=== PATIENT | male | born 1975 | race Caucasian/White ===

== ENCOUNTER 2016-07-30 22:08 | Emergency (ER) | payer OTHER ==
--- NOTE | 2016-07-31 00:35 | EDM.PDOC ---
ED HPI GENERAL MEDICAL PROBLEM - General Chief Complaint: General Stated Complaint: ACHY,WEAK,JOINT PAIN, [id number] Time Seen by Provider: 07/30/16 23:40 Source of Information: Reports: Patient History Limitations: Reports: No Limitations - History of Present Illness INITIAL COMMENTS - FREE TEXT/NARRATIVE: C/O severe joint pain and fatigue over past 2 days Sweating with activity. Pain generalized joints , migrates Location: Reports: Generalized Quality: Reports: Ache, Burning, Throbbing Severity: Moderate Improves with: Reports: Rest Associated Symptoms: Reports: Diaphoresis, Headaches, Loss of Appetite, Malaise. Denies: Rash Generalized Pain Score (Numeric/FACES): 4 - Related Data Allergies Allergy/AdvReac Type Severity Reaction Status Date / Time No Known Allergies Allergy Verified 07/30/16 23:43 Home Meds: Home Meds Hydrochlorothiazide 12.5 mg PO DAILY 07/30/16 [History] Metoprolol Succinate [Toprol XL] 100 mg PO DAILY 07/30/16 [History] Milk Thistle 150 mg PO BID 07/30/16 [History] Pioglitazone [Actos] 15 mg PO DAILY 07/30/16 [History] Potassium Chloride 10 meq PO DAILY 07/30/16 [History] metFORMIN [Glucophage XR] 1,000 mg PO BIDMEALS 07/30/16 [History] Past Medical History Cardiovascular History: Reports: Hypertension Other Gastrointestinal History: class 3 liver disease Endocrine/Metabolic History: Reports: Diabetes, Type II Social & Family History - Tobacco Use Smoking Status *Q: Never Smoker Second Hand Smoke Exposure: No - Recreational Drug Use Recreational Drug Use: No ED ROS GENERAL - Review of Systems Review Of Systems: See Below Constitutional: Reports: Malaise, Weakness, Diaphoresis HEENT: Reports: No Symptoms Respiratory: Reports: No Symptoms Cardiovascular: Reports: No Symptoms GI/Abdominal: Reports: Decreased Appetite, Nausea (slight, tolerating fluids, no emesis) : Reports: No Symptoms Musculoskeletal: Reports: Joint Pain. Denies: Joint Swelling Skin: Reports: No Symptoms. Denies: Rash Neurological: Reports: Headache ED EXAM, GENERAL - Physical Exam Exam: See Below Exam Limited By: No Limitations General Appearance: Alert, Mild Distress Eye Exam: Bilateral Eye: EOMI, PERRL Ears: Normal External Exam, Normal TMs Nose: Normal Inspection Throat/Mouth: Normal Inspection Head: Atraumatic, Normocephalic Neck: Normal Inspection, Full Range of Motion, Tender Lateral. No: Lymphadenopathy (L), Lymphadenopathy (R), Tender Midline Respiratory/Chest: No Respiratory Distress, Lungs Clear, Normal Breath Sounds Cardiovascular: Normal Peripheral Pulses, Regular Rate, Rhythm GI/Abdominal: Normal Bowel Sounds, Soft Back Exam: Full Range of Motion Extremities: Normal Inspection, Normal Range of Motion Neurological: Alert, Oriented, Normal Cognition Psychiatric: Normal Affect, Normal Mood Skin Exam: Warm, Dry, Intact, Normal Color, No Rash Course - Vital Signs Last Recorded V/S: Last Vital Signs Temp 97.3 F 07/31/16 05:00 Pulse 80 07/30/16 23:39 Resp 14 07/31/16 05:00 BP 153/85 H 07/31/16 05:00 Pulse Ox 96 07/31/16 05:00 - Orders/Labs/Meds Orders: Active Orders 24 hr Category Date Time Status Glucose [Blood Glucose Check, Bedside] [RC] ONETIME Care 07/31/16 00:04 Active CULTURE BLOOD [BC] Stat Lab 07/31/16 00:28 Received CULTURE BLOOD [BC] Stat Lab 07/31/16 00:30 Received LYME/B.BURGDORFERI IGG/IGM [REF] Stat Lab 07/31/16 00:28 Received NS + KCl 20mEq/L [Normal Saline with 20 mEq KCl] 1,000 Med 07/31/16 01:00 Active ml IV ASDIRECTED Blood Culture x2 Reflex Set [OM.PC] Stat Oth 07/31/16 00:01 Ordered Medication Orders Potassium Chloride/Sodium Chloride (Normal Saline With 20 Meq Kcl) 1,000 mls @ 200 mls/hr IV ASDIRECTED FREDY Last Infusion: 07/31/16 02:03 Dose: 500 mls/hr Admin: 07/31/16 01:19 Dose: 200 mls/hr Labs: Laboratory Tests 07/31/16 07/31/16 07/31/16 Range/Units 00:04 00:10 00:10 WBC 4.6 L (5.0-10.0) 10^3/uL RBC 5.40 (4.6-6.2) 10^6/uL Hgb 15.5 (14.0-18.0) g/dL Hct 44.0 (40.0-54.0) % MCV 81.5 (80-100) fL MCH 28.7 (27.0-34.0) pg MCHC 35.2 H (33.0-35.0) g/dL Plt Count 114 L (150-450) 10^3/uL Neut % (Auto) 71.4 (42.2-75.2) % Lymph % (Auto) 15.1 L (20.5-50.1) % [place] % (Auto) 13.1 H (2-8) % Eos % (Auto) 0.0 L (1.0-3.0) % Baso % (Auto) 0.4 (0.0-1.0) % Sodium 136 (135-145) mmol/L Potassium 2.9 L (3.6-5.0) mmol/L Chloride 99 L (101-111) mmol/L Carbon Dioxide 25.0 (21.0-31.0) mmol/L Anion Gap 14.9 BUN 15 (7-18) mg/dL Creatinine 1.1 (0.6-1.3) mg/dL Est Cr Clr Drug Dosing 98.96 mL/min Estimated GFR (MDRD) > 60 BUN/Creatinine Ratio 13.63 Glucose 128 H (74-105) mg/dL POC Glucose (70-105) mg/dl Lactic Acid (0.5-2.2) mmol/L Calcium 8.9 (8.4-10.2) mg/dl Total Bilirubin 2.2 H (0.2-1.0) mg/dL AST 46 H (10-42) IU/L ALT 47 (10-60) IU/L Alkaline Phosphatase 59 (42-121) IU/L Ammonia (11-35) umol/L C-Reactive Protein (0.0-1.3) mg/dL Total Protein 7.7 (6.7-8.2) g/dl Albumin 4.6 (3.2-5.5) g/dl Globulin 3.1 Albumin/Globulin Ratio 1.48 Amylase (28-100) U/L Lipase (22-51) U/L Urine Color Yellow (YELLOW) Urine Appearance Clear (CLEAR) Urine pH 7.0 (5.0-9.0) Ur Specific [facility] 1.010 (1.005-1.030) Urine Protein Negative (NEGATIVE) Urine Glucose (UA) Negative (NEGATIVE) Urine Ketones Negative (NEGATIVE) Urine Occult Blood Negative (NEGATIVE) Urine Nitrite Negative (NEGATIVE) Urine Bilirubin Negative (NEGATIVE) Urine Urobilinogen 0.2 (0.2-1.0) mg/dL Ur Leukocyte Esterase Negative (NEGATIVE) Urine RBC 0-5 /HPF Urine WBC 0-5 (0-5/HPF) /HPF Ur Epithelial Cells Occasional /HPF Urine Bacteria Occasional (0-FEW/HPF) /HPF Ketones Negative Monoscreen 07/31/16 07/31/16 07/31/16 Range/Units 00:10 00:12 00:28 WBC (5.0-10.0) 10^3/uL RBC (4.6-6.2) 10^6/uL Hgb (14.0-18.0) g/dL Hct (40.0-54.0) % MCV (80-100) fL MCH (27.0-34.0) pg MCHC (33.0-35.0) g/dL Plt Count (150-450) 10^3/uL Neut % (Auto) (42.2-75.2) % Lymph % (Auto) (20.5-50.1) % [place] % (Auto) (2-8) % Eos % (Auto) (1.0-3.0) % Baso % (Auto) (0.0-1.0) % Sodium (135-145) mmol/L Potassium (3.6-5.0) mmol/L Chloride (101-111) mmol/L Carbon Dioxide (21.0-31.0) mmol/L Anion Gap BUN (7-18) mg/dL Creatinine (0.6-1.3) mg/dL Est Cr Clr Drug Dosing mL/min Estimated GFR (MDRD) BUN/Creatinine Ratio Glucose (74-105) mg/dL POC Glucose 129 H (70-105) mg/dl Lactic Acid (0.5-2.2) mmol/L Calcium (8.4-10.2) mg/dl Total Bilirubin (0.2-1.0) mg/dL AST (10-42) IU/L ALT (10-60) IU/L Alkaline Phosphatase (42-121) IU/L Ammonia 36 H (11-35) umol/L C-Reactive Protein (0.0-1.3) mg/dL Total Protein (6.7-8.2) g/dl Albumin (3.2-5.5) g/dl Globulin Albumin/Globulin Ratio Amylase 67 (28-100) U/L Lipase 32 (22-51) U/L Urine Color (YELLOW) Urine Appearance (CLEAR) Urine pH (5.0-9.0) Ur Specific [facility] (1.005-1.030) Urine Protein (NEGATIVE) Urine Glucose (UA) (NEGATIVE) Urine Ketones (NEGATIVE) Urine Occult Blood (NEGATIVE) Urine Nitrite (NEGATIVE) Urine Bilirubin (NEGATIVE) Urine Urobilinogen (0.2-1.0) mg/dL Ur Leukocyte Esterase (NEGATIVE) Urine RBC /HPF Urine WBC (0-5/HPF) /HPF Ur Epithelial Cells /HPF Urine Bacteria (0-FEW/HPF) /HPF Ketones Monoscreen Negative 07/31/16 07/31/16 07/31/16 Range/Units 00:28 04:00 04:00 WBC (5.0-10.0) 10^3/uL RBC (4.6-6.2) 10^6/uL Hgb (14.0-18.0) g/dL Hct (40.0-54.0) % MCV (80-100) fL MCH (27.0-34.0) pg MCHC (33.0-35.0) g/dL Plt Count (150-450) 10^3/uL Neut % (Auto) (42.2-75.2) % Lymph % (Auto) (20.5-50.1) % [place] % (Auto) (2-8) % Eos % (Auto) (1.0-3.0) % Baso % (Auto) (0.0-1.0) % Sodium (135-145) mmol/L Potassium 3.2 L (3.6-5.0) mmol/L Chloride (101-111) mmol/L Carbon Dioxide (21.0-31.0) mmol/L Anion Gap BUN (7-18) mg/dL Creatinine (0.6-1.3) mg/dL Est Cr Clr Drug Dosing mL/min Estimated GFR (MDRD) BUN/Creatinine Ratio Glucose (74-105) mg/dL POC Glucose (70-105) mg/dl Lactic Acid 1.2 (0.5-2.2) mmol/L Calcium (8.4-10.2) mg/dl Total Bilirubin (0.2-1.0) mg/dL AST (10-42) IU/L ALT (10-60) IU/L Alkaline Phosphatase (42-121) IU/L Ammonia (11-35) umol/L C-Reactive Protein 3.3 H (0.0-1.3) mg/dL Total Protein (6.7-8.2) g/dl Albumin (3.2-5.5) g/dl Globulin Albumin/Globulin Ratio Amylase (28-100) U/L Lipase (22-51) U/L Urine Color (YELLOW) Urine Appearance (CLEAR) Urine pH (5.0-9.0) Ur Specific [facility] (1.005-1.030) Urine Protein (NEGATIVE) Urine Glucose (UA) (NEGATIVE) Urine Ketones (NEGATIVE) Urine Occult Blood (NEGATIVE) Urine Nitrite (NEGATIVE) Urine Bilirubin (NEGATIVE) Urine Urobilinogen (0.2-1.0) mg/dL Ur Leukocyte Esterase (NEGATIVE) Urine RBC /HPF Urine WBC (0-5/HPF) /HPF Ur Epithelial Cells /HPF Urine Bacteria (0-FEW/HPF) /HPF Ketones Monoscreen Meds: Medications Generic Name Dose Route Start Last Admin Trade Name Freq PRN Reason Stop Dose Admin Potassium Chloride/Sodium Chloride 1,000 mls @ 200 mls/hr 07/31/16 01:00 02:03 Normal Saline With 20 Meq Kcl IV 500 mls/hr ASDIRECTED FREDY Infusion Discontinued Medications Generic Name Dose Route Start Last Admin Trade Name Kaitlynn PRN Reason Stop Dose Admin Doxycycline Hyclate 100 mg 07/31/16 01:15 07/31/16 01:26 Vibramycin PO 07/31/16 01:16 100 mg ONETIME ONE Administration Doxycycline Hyclate 100 mg/ 100 mls @ 100 mls/hr 07/31/16 00:59 Sodium Chloride IV 07/31/16 01:58 ONETIME ONE Ibuprofen 600 mg 07/31/16 02:39 07/31/16 03:07 Motrin PO 07/31/16 02:40 600 mg ONETIME ONE Administration Ondansetron HCl 4 mg 07/31/16 00:59 07/31/16 01:16 Zofran IV 07/31/16 01:00 4 mg ONETIME ONE Administration Potassium Chloride 10 meq 07/31/16 00:58 07/31/16 01:21 Klor-Con 10 PO 07/31/16 00:59 10 meq ONETIME ONE Administration - Re-Assessments/Exams Free Text/Narrative Re-Assessment/Exam: 07/31/16 05:02 Resting IVF infused. Headache improved, no nausea. Photosensitivity resolved. Awaiting lab result then plan discharge. Plan of care discussed with patient for follow up on or Friday in clinic, with recheck of potassium. Off work this week. Continue home medications. Urgent follwo upif worsening of symptoms. Utilization of ibuprofen for fever and inflammation. [id number] twice daily. Departure - Departure Time of Disposition: :44 Disposition: Home, Self-Care 01 Condition: Fair Clinical Impression: Weakness Arthralgia Qualifiers: Joint pain location: unspecified Qualified Code(s): M25.50 - Pain in unspecified joint - Discharge Information Instructions: Lyme Disease Forms: ED Department Discharge Additional Instructions: follow up on or Friday in clinic, with recheck of potassium. Off work this week. Continue home medications. Urgent follow up if worsening of symptoms. Utilization of ibuprofen for fever and inflammation. [id number] twice daily. - My Orders Last 24 Hours: My Active Orders 07/31/16 00:01 Blood Culture x2 Reflex Set [OM.PC] Stat 07/31/16 00:04 Glucose [Blood Glucose Check, Bedside] [RC] ONETIME 07/31/16 00:28 CULTURE BLOOD [BC] Stat LYME/B.BURGDORFERI IGG/IGM [REF] Stat 07/31/16 00:30 CULTURE BLOOD [BC] Stat 07/31/16 01:00 NS + KCl 20mEq/L [Normal Saline with 20 mEq KCl] 1,000 ml IV ASDIRECTED - Assessment/Plan Last 24 Hours: My Active Orders 07/31/16 00:01 Blood Culture x2 Reflex Set [OM.PC] Stat 07/31/16 00:04 Glucose [Blood Glucose Check, Bedside] [RC] ONETIME 07/31/16 00:28 CULTURE BLOOD [BC] Stat LYME/B.BURGDORFERI IGG/IGM [REF] Stat 07/31/16 00:30 CULTURE BLOOD [BC] Stat 07/31/16 01:00 NS + KCl 20mEq/L [Normal Saline with 20 mEq KCl] 1,000 ml IV ASDIRECTED
[2016-07-31 00:46] LABS: CHLORIDE,CL 99 mmol/L (101-111); SODIUM,NA 136 mmol/L (135-145)
[2016-07-31] MEDS ORDERED: Potassium Chloride 10 MEQ in Premix Bag 1 BAG IV ONE (00:56)
[2016-07-31] MEDS ORDERED: Potassium Chloride 10 MEQ Tab.ER PO ONE (00:58)
[2016-07-31] MEDS ORDERED: Doxycycline 100 MG in Sodium Chloride 0.9% 100 ML IV ONE (00:59)
[2016-07-31] MEDS ORDERED: Ondansetron 4 MG/2 ML SDV IV ONE (00:59)
[2016-07-31] MEDS ORDERED: NS + KCl 20mEq/L 1,000 ML IV SCH (01:00)
[2016-07-31] MEDS ORDERED: Doxycycline 100 MG Cap PO ONE (01:15)
[2016-07-31] MEDS ORDERED: Ibuprofen 600 MG Tab PO ONE (02:39)
[2016-07-31 06:20] VITALS: BP 147/104
== END 2016-07-31 06:15 | disposition home or self-care (01) ==
LOC: DL.ED 22:08
DX: R53.1 Weakness (principal); M25.50 Pain in unspecified joint; Z79.899 Other long term (current) drug therapy; I10 Essential (primary) hypertension; E11.9 Type 2 diabetes mellitus without complications; Z79.84 Long term (current) use of oral hypoglycemic drugs
CPT/HCPCS: 36415; 80053; 81001; 82009; 82140; 82150; 82962; 83605; 83690; 84132; 85025; 86140; 86308; 86618; 87040; 96365; 96366; 99283; A9270; J2405; J3480

== ENCOUNTER 2018-07-18 04:27 | Emergency (ER) | payer OTHER ==
[2018-07-18 04:48] VITALS: BP 158/110
[2018-07-18] MEDS ORDERED: Lidocaine 1% 30 ML SDV INJECT ONE (05:03)
[2018-07-18] MEDS ORDERED: Diphtheria,Pertussis(Acell),Tetanus Vaccine 0.5 ML SDV IM ONE (05:03)
[2018-07-18] MEDS ORDERED: Cephalexin 500 MG Cap PO ONE (05:10)
--- NOTE | 2018-07-18 05:10 | EDM.PDOC ---
ED HPI GENERAL MEDICAL PROBLEM - General Chief Complaint: Bite:Animal, Insect Stated Complaint: BIT BY A DOG [id number] Time Seen by Provider: 07/18/18 05:04 Source of Information: Reports: Patient History Limitations: Reports: No Limitations - History of Present Illness INITIAL COMMENTS - FREE TEXT/NARRATIVE: bit by dog while trying to help it tonight during accident investigation. Right Hand Pain Score (Numeric/FACES): 3 - Related Data Allergies Allergy/AdvReac Type Severity Reaction Status Date / Time No Known Allergies Allergy Verified 07/18/18 05:15 Home Meds: Home Meds Hydrochlorothiazide 12.5 mg PO DAILY 07/30/16 [History] Metoprolol Succinate [Toprol XL] 100 mg PO DAILY 07/30/16 [History] Milk Thistle 150 mg PO BID 07/30/16 [History] Pioglitazone [Actos] 15 mg PO DAILY 07/30/16 [History] Potassium Chloride 10 meq PO DAILY 07/30/16 [History] metFORMIN [Glucophage XR] 1,000 mg PO BIDMEALS 07/30/16 [History] Past Medical History Cardiovascular History: Reports: Hypertension Other Gastrointestinal History: class 3 liver disease Musculoskeletal History: Reports: Arthritis Other Musculoskeletal History: shoulder surgeries, knee surgeries Endocrine/Metabolic History: Reports: Diabetes, Type II - Past Surgical History Musculoskeletal Surgical History: Reports: Arthroscopic Knee Social & Family History - Family History GI: Reports: Cirrhosis Neurological: Reports: CVA Endocrine/Metabolic: Reports: Diabetes, type II Oncologic: Reports: Liver - Tobacco Use Smoking Status *Q: Never Smoker Second Hand Smoke Exposure: No - Caffeine Use Caffeine Use: Reports: Coffee, Soda - Recreational Drug Use Recreational Drug Use: No ED ROS GENERAL - Review of Systems Review Of Systems: ROS reveals no pertinent complaints other than HPI. ED EXAM, ANIMAL BITE - Physical Exam Exam: See Below Exam Limited By: No Limitations General Appearance: Alert, WD/WN, No Apparent Distress Ears: Hearing Grossly Normal Throat/Mouth: Normal Voice, No Airway Compromise Head: Atraumatic Neck: Non-Tender, Full Range of Motion Respiratory/Chest: No Respiratory Distress Cardiovascular: Regular Rate, Rhythm GI/Abdominal: Soft, Non-Tender Extremities: Other (right thenar emince 1/4" puncture mild bleeding, ROM normal , NV wnl.) Neurological: Alert, Oriented, Normal Cognition, Normal Gait, No Motor/Sensory Deficits Psychiatric: Normal Affect, Normal Mood Skin Exam: Normal Color, Warm/Dry Lymphatic: No Adenopathy ED ANIMAL BITE PROCEDURES - Laceration/Wound Repair Right Hand Lac/Wound Length In cm: 0.5 (right thenar emince) Appearance: Subcutaneous, Linear, Clean Distal NVT: Neuro & Vascular Intact, No Tendon Injury Anesthetic Type: Local Local Anesthesia - Lidocaine (Xylocaine): 1% Plain Local Anesthetic Volume: 5cc Skin Prep: Chlorhexidine (Hibiciens) Saline Irrigation (cc's): 20 Exploration/Debridement/Repair: Wound Explored, No Foreign Material Found Closed With: Sutures Suture Size: 4-0 Suture Type: Nylon, Interrupted Sterile Dressing Applied: Provider Tetanus Status Addressed: Yes Complications: No Course - Vital Signs Last Recorded V/S: Last Vital Signs Temp 36.5 C 07/18/18 04:44 Pulse 72 07/18/18 04:44 Resp 18 07/18/18 04:44 BP 158/110 H 07/18/18 04:44 Pulse Ox 99 07/18/18 04:44 - Orders/Labs/Meds Orders: Active Orders 24 hr Category Date Time Status Vaccines to be Administered [RC] PER UNIT ROUTINE Care 07/18/18 05:04 Active Meds: Medications Discontinued Medications Generic Name Dose Route Start Last Admin Trade Name Kaitlynn PRN Reason Stop Dose Admin Cephalexin 500 mg 07/18/18 05:10 07/18/18 05:25 Keflex PO 07/18/18 05:11 500 mg ONETIME ONE Administration Diphtheria/Tetanus/Acell Pertussis 0.5 ml 07/18/18 05:03 07/18/18 05:05 Adacel IM 07/18/18 05:04 0.5 ml .ONCE ONE Administration Lidocaine HCl 30 ml 07/18/18 05:03 07/18/18 05:21 Xylocaine-Mpf 1% INJECT 07/18/18 05:04 30 ml ONETIME ONE Administration Departure - Departure Time of Disposition: 05:36 Disposition: Home, Self-Care 01 Condition: Good Clinical Impression: Hand laceration Qualifiers: Encounter type: initial encounter Foreign body presence: without foreign body Laterality: right Qualified Code(s): S61.411A - Laceration without foreign body of right hand, initial encounter - Discharge Information Instructions: Laceration Care, Adult, [id number] Forms: ED Department Discharge Additional Instructions: 1) keep wound clean dry covered 2) recheck if looks infected 3) suture removal 10 days rx givne; keflex 250mg qid x 40 - My Orders Last 24 Hours: My Active Orders 07/18/18 05:04 Vaccines to be Administered [RC] PER UNIT ROUTINE - Assessment/Plan Last 24 Hours: My Active Orders 07/18/18 05:04 Vaccines to be Administered [RC] PER UNIT ROUTINE
== END 2018-07-18 05:50 | disposition home or self-care (01) ==
LOC: DL.ED 04:27
DX: S61.431A Puncture wound without foreign body of right hand, initial encounter (principal); I10 Essential (primary) hypertension; E11.9 Type 2 diabetes mellitus without complications; Z79.899 Other long term (current) drug therapy; Z79.84 Long term (current) use of oral hypoglycemic drugs; Z23 Encounter for immunization; W54.0XXA Bitten by dog, initial encounter
CPT/HCPCS: 12001; 90471; 90715; 99283; A9270; J2001

== ENCOUNTER 2019-02-19 05:23 | Day surgery (SDC) | payer OTHER ==
[2019-02-19] MEDS ORDERED: Midazolam 1 MG/ML 2 ML SDV IV ONE ×4 (05:24→06:32)
[2019-02-19] MEDS ORDERED: fentaNYL 100 MCG/2 ML SDV IV ONE ×3 (05:24→06:28)
[2019-02-19] MEDS ORDERED: Sodium Chloride 0.9% 10 ML Syringe FLUSH PRN (06:00)
[2019-02-19] MEDS ORDERED: Dextrose 5%-0.45% NaCl 1,000 ML IV SCH (06:00)
[2019-02-19] MEDS ORDERED: Midazolam 1 MG/ML 2 ML SDV ONE ×2 (06:12→06:32)
[2019-02-19] MEDS ORDERED: fentaNYL 100 MCG/2 ML SDV ONE (06:12)
--- NOTE | 2019-02-19 09:42 | PN ---
DATE: 02/19/2019 Esophagogastroduodenoscopy was attempted using fentanyl 100 mcg intravenous and Versed 3 mg intravenous. The patient pulled the scope out on attempt couple of times and the procedure was terminated. PLAN: Stable vital signs. The patient to be rescheduled later with deep sedation from [facility]. The patient acceptable. MODL /[id number]
[2019-02-19 10:57] VITALS: BP 137/87; PULSE 66
== END 2019-02-19 08:15 | disposition home or self-care (01) ==
LOC: DL.ENDO 05:23
PROVIDERS: ATTEND Internal Medicine Gastroenterology
DX: K52.9 Noninfective gastroenteritis and colitis, unspecified (principal); I10 Essential (primary) hypertension; E11.9 Type 2 diabetes mellitus without complications; E66.09 Other obesity due to excess calories; Z68.34 Body mass index [BMI] 34.0-34.9, adult; Z88.8 Allergy status to other drugs, medicaments and biological substances; Z98.890 Other specified postprocedural states
CPT/HCPCS: 43239; J2250; J3010; J7042; 43235